=== PATIENT | male | born 1975 | race Caucasian/White ===

== ENCOUNTER 2021-05-14 11:29 | Outpatient (REF) | payer OTHER, SELFPAY ==
[2021-05-14 12:51] LABS: Binax Now Covid-19 Ag Positive (Negative)
[2021-05-14 12:52] LABS: Binax Internal Control QC Valid; Binax Lot number: 9864
== END 2021-05-14 11:30 | disposition home or self-care (01) ==
LOC: HO.LAB 11:29
PROVIDERS: Visit Provider Internal Medicine
DX: Z20.822 Contact with and (suspected) exposure to COVID-19 (principal)
CPT/HCPCS: 36415; C9803

== ENCOUNTER 2023-04-25 14:43 | Outpatient (AMB) | payer OTHER, SELFPAY ==
--- NOTE | 2023-04-25 14:56 | MHC.PC.OV ---
Vital Signs 04/25/23 15:01 Height 5 ft 3 in Weight 156 lb 6 oz BMI 27.7 BP 160/102 H Blood Pressure Location Lt brachial Position Sitting Pulse 100 Pulse Source Palpation Intake Visit Reasons: Re-establish care Intake Note: Pt is here to re-establish care. Pt has not seen a PCP in over 5-10 years. 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 Language: Turkish Accompanied by: Spouse Allergies nuts Allergy (Severe, Uncoded 04/25/23 15:19) Anaphylaxis Medication List - Last Reconciled 04/25/23 by Mich Schreiber PA-C epinephrine 0.15 mg IM Q30M PRN Tobacco use date assessed: 04/25/23 Dental Screening Dental Screen Date: 04/25/23 Did you have a dental visit in the last 12 months?: No Did you have a dental problem in the last 6 months where you did not have access to dental care?: No Was dental information given to patient?: Patient has dentist HPI Re-establish care HPI Details Patient is a 39-year-old male here today for restart which care visit. Has not had a PCP in many years. Patient had a past medical history significant for hypertension. He is pretty hypertensive today in office, he is otherwise asymptomatic. He does report having a family history of high blood pressure. He does admit to drinking 2 cups of coffee and monster energy drink on a daily basis. 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 Colon cancer screening: Has not had any colonoscopy Vaccine: He does report getting COVID vaccine, he is considering tetanus vaccine, declines flu vaccine PFSH Family History (Updated 04/25/23 @ 15:23 by Mich Schreiber PA-C) Mother CVA (cerebral vascular accident) Alzheimer disease Father Tracheal cancer Social History (Updated 04/25/23 @ 15:24 by Mich Schreiber PA-C) Housing: Apartment Alcohol intake: current Alcohol intake frequency: a few times a week Alcohol type: beer Patient Tobacco Use Status: Never used Tobacco e-Cigarette/Vaping Use: Never Used service: No Current occupational status: employed 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 1. Little interest or pleasure in doing things: not at all 2. Feeling down, depressed, or hopeless: not at all 3. Trouble falling or staying asleep, or sleeping too much: not at all 4. Feeling tired or having little energy: not at all 5. Poor appetite or overeating: not at all 6. Feeling bad about yourself - or that you are a failure or have let yourself or your family down: not at all 7. Trouble concentrating on things, such as reading the newspaper or watching television: not at all 8. Moving or speaking so slowly that other people could have noticed. Or the opposite - being so fidgety or restless that you have been moving around a lot more than usual: not at all 9. Thoughts that you would be better off or of hurting yourself in some way: not at all Total score: 0 Depression Screening Interpretation: Negative Depression Screening Done: Yes 98668 - PHQ-9 Billing: Yes Source: Developed by Drs. Joshua Rios, Bria Law, Ventura Peralta and colleagues, with an educational cami from [employer]. Thrive Questionnaire Date Thrive assessed: 04/25/23 I am a: Patient What is your living situation today?: I have a steady place to live Within the past 12 months, did the food you bought not last and you didn't have the money to get more?: Never true Within the past 12 months, did you worry whether your food would run out before you got money to buy more?: Never true Do you have trouble paying for medicines?: No Do you have trouble getting transportation to medical appointments?: No Do you have trouble paying your heating and electricity bill?: No Do you have trouble taking care of your child, family member or friend?: No Do you have trouble with day-to-day activities such as bathing, preparing meals, shopping, managing finances, etc.?: No Are you currently unemployed and looking for a job?: No Are you interested in more education?: No Please select the resources that you would like help with: None Currently or been in a relationship where the following occur: no concerns reported AUDIT C Alcohol Use Questionnaire (AUDIT-C) 1. How often do you have a drink containing alcohol?: Monthly or less 2. How many drinks containing alcohol do you have on a typical day when you are drinking?: 1 or 2 3. How often do you have six or more drinks on one occasion?: Never Total Score: 1 JOSE G-7 AMB Questionnaire JOSE G-7 Date JOSE G - 7 assessed: 04/25/23 Feeling nervous, anxious, or on edge: 0 = Not at all Not being able to stop or control worryin = Not at all Worrying too much about different things: 0 = Not at all Trouble relaxin = Not at all Being so restless that it is hard to sit still: 0 = Not at all Becoming easily annoyed or irritable: 0 = Not at all Feeling afraid as if something awful might happen: 0 = Not at all Total JOSE G-7 score (0-4 normal; 5-9 mild; 10-14 moderate; 15-21 severe): 0 Source: Developed by Drs. Joshua Rios, Bria Law, Ventura Peralta and colleagues, with an educational cami from [employer]. JOSE G-7 Assessment Billing JOSE G-7 Assessment Tool: JOSE G-7 Assessment [id number] Review of Systems Const Denies headache(s) Eyes Denies loss of vision ENT Denies vertigo, Denies dizziness, Denies headache(s) and Denies sore throat Card Denies chest pain, Denies leg edema and Denies lightheadedness Resp Denies cough, Denies hemoptysis and Denies wheezing GI Denies abdominal pain, Denies melena, Denies constipation, Denies diarrhea and Denies vomiting Denies dysuria, Denies urinary frequency and Denies urinary urgency Musc Denies arthralgias, Denies joint swelling, Denies numbness and Denies tingling Neuro Denies Abnormal speech present, Denies behavioral changes, Denies vertigo, Denies dizziness, Denies headache(s), Denies loss of vision, Denies memory loss, Denies numbness and Denies tingling Psych Denies anxiety, Denies behavioral changes, Denies depression, Denies memory loss and Denies panic attacks Blair/Lymph Denies easy bleeding and Denies easy bruising Aller/Immun Denies wheezing Physical exam (Primary Care) Vital Signs: Last Vital Signs Pulse 100 04/25/23 15:01 BP 160/102 H 04/25/23 15:01 BMI result Body Mass Index 27.7 Tobacco/Smoking Status: Tobacco use Status Tobacco use date assessed 04/25/23 04/25/23 15:13 Patient Tobacco Use Status Never used Tobacco 04/25/23 15:24 e-Cigarette/Vaping Use Never Used 04/25/23 15:24 PHQ-9: PHQ-9 Score PHQ-9: Total score 0 04/25/23 15:21 Depression Screening Interpretation: Negative Thrive Assessment: Date of Thrive Assessment Date Thrive assessed 04/25/23 04/25/23 15:13 Currently or been in a relationship where the following occur: no concerns reported Const General: healthy appearing, no acute distress, alert and awake Nutritional Appearance: well nourished Orientation/consciousness: oriented to person, oriented to place and oriented to time HENMT Ears: TM's normal bilaterally General nose exam: Normal nasal mucous membranes and turbinates present Eyes Conjunctivae: conjunctivae normal Sclerae: sclerae normal Pupils: Equal, round and reactive pupils present Neck Neck: Yes no lymphadenopathy and Yes no JVD Thyroid: Thyroid normal Carotids: no bruits Resp Effort & Inspection: normal respiratory effort and not tachypneic Auscultation: no crackles, no rales, no rhonchi and no wheezes Cardio Rate: regular rate Rhythm: regular rhythm Heart sounds: no murmurs and normal S1 and S2 GI Palpation (GI): Soft to palpation, nontender, no hepatomegaly and no splenomegaly Auscultation: normal bowel sounds Skin General skin exam: no rashes or lesions noted and dry skin Neuro General: oriented to person, oriented to place and oriented to time Cranial nerves: Yes Equal, round and reactive pupils present Speech: No Abnormal speech present Gait exam (Neuro): Normal gait present Motor exam (neuro): no tremor noted Extrem Right upper extremity: full ROM Left upper extremity: full ROM Right lower extremity: full ROM; no edema Left lower extremity: full ROM; no edema Psych Mental Status: mental status grossly normal Speech and movement: Normal speech and movement present Affect: normal affect Attitude: cooperative Thought process: Normal thought process present Assessment and Plan Assessment & Plan (1) HTN (hypertension): Code(s): I10 - Essential (primary) hypertension Qualifiers: Hypertension type: primary hypertension Qualified Code(s): I10 - Essential (primary) hypertension Plan: Patient's blood pressure elevated today in office. He does report family history of blood pressure per will start lisinopril mg. He does report drinking 2 cups of coffee and a 2nd injury drink a daily basis. Advised to reduce his caffeine intake. Goal blood pressures to be below 140/90 (2) Colon cancer screening: Code(s): Z12.11 - Encounter for screening for malignant neoplasm of colon Plan: Willing to do colonoscopy (3) Bilateral knee pain: Code(s): M25.561 - Pain in right knee; M25.562 - Pain in left knee Qualifiers: Chronicity: chronic Qualified Code(s): M25.561 - Pain in right knee; M25.562 - Pain in left knee; G89.29 - Other chronic pain Plan: Reports bilateral knee pain during cold days. Likely has osteoarthritis. Advised on p.r.n. use of Tylenol and anti-inflammatory. (4) Nut allergy: Code(s): Z91.018 - Allergy to other foods Plan: Anaphylactic reaction to nuts. Would like an EpiPen in case at anaphylactic reaction. Orders: Orders Microalbumin, Random (w Creat) 04/25/23 I10 - Essential (primary) hypertension Lipid Panel 04/25/23 I10 - Essential (primary) hypertension Complete Blood Count no Diff 04/25/23 I10 - Essential (primary) hypertension Prostate Specific Antigen Scr 04/25/23 I10 - Essential (primary) hypertension, Z12.5 - Encounter for screening for malignant neoplasm of prostate Comprehensive [place]. Panel Fast 04/25/23 I10 - Essential (primary) hypertension Referrals Gastroenterology Referral Z12.11 - Encounter for screening for malignant neoplasm of colon Medications: New miscellaneous medical supply (Blood Pressure Cuff) As directed 1 ea 0RF I10 - Essential (primary) hypertension epinephrine do not exceed 12 doses per 24 hrs 0.15 mg (0.3 mL) IM Q30M 30 days PRN 2 ea 0RF anaphylaxis Z91.018 - Allergy to other foods lisinopril 5 mg PO DAILY 30 days 30 tabs 1RF I10 - Essential (primary) hypertension Coding Level of Care Code New Pt Level 4 (73128) Diagnoses Primary hypertension I10 Hypertension type: primary hypertension Colon cancer screening Z12.11 Chronic pain of both knees M25.561; M25.562; G89.29 Chronicity: chronic Nut allergy Z91.018 Additional Codes JOSE G-7 Assessment Billing - JOSE G-7 Assessment Tool: JOSE G-7 Assessment [id number] ([id number])
[2023-04-25 15:01] VITALS: BP 160/102; PULSE 100; BMI 27.7
== END 2023-04-25 15:39 | disposition home or self-care (01) ==
PROVIDERS: PCP Internal Medicine Interventional Cardiology; Visit Provider Physician Assistant
DX: I10 Essential (primary) hypertension (principal); Z12.11 Encounter for screening for malignant neoplasm of colon; M25.561 Pain in right knee; M25.562 Pain in left knee; G89.29 Other chronic pain; Z91.018 Allergy to other foods
CPT/HCPCS: 99204

== ENCOUNTER 2023-04-27 10:07 | Outpatient (REF) | payer OTHER, SELFPAY ==
[2023-04-27 10:57] LABS: Hematocrit 41.9 % (42.0-52.0); Hemoglobin 14.6 g/dl (14.0-18.0); Mean Corpuscular HGB Conc 34.8 g/dl (31.0-36.0); Mean Corpuscular Hemoglobin 30.8 pg (27.0-33.0); Mean Corpuscular Volume 88.4 fL (80.0-98.0); Mean Platelet Volume 10.9 fL (9.4-12.4); Platelet Count 368 X10*3/uL (160-400); Red Blood Count 4.74 X10*6/uL (4.60-5.80); Red Cell Distribution Width 11.5 % (11.0-16.0); White Blood Count 5.7 X10*3/uL (4.8-10.8)
[2023-04-27 11:10] LABS: Creatinine Urine 101.36 mg/dL
[2023-04-27 11:12] LABS: Alanine Aminotransferase 22 U/L (0-40); Albumin Level 4.2 g/dL (3.5-5.0); Alkaline Phosphatase 63 U/L (39-117); Anion Gap 9 (12-20); Aspartate Amino Transferase 19 U/L (5-37); Bilirubin Total 0.5 mg/dL (0.0-1.0); Blood Urea Nitrogen 12 mg/dL (9-16); Calcium 9.6 mg/dL (8.4-10.2); Carbon Dioxide 31 mmol/L (22-29); Chloride 102 mmol/L (96-108); Cholesterol 246 mg/dL (<200); Estimated Glomerular Filt Rate > 60; Glucose Fasting 276 mg/dL (60-99); HDL Cholesterol 49 mg/dL (>40); LDL Cholesterol Calculated 173 mg/dL (<100); Potassium 3.8 mmol/L (3.3-5.1); Sodium 138 mmol/L (135-145); Total Protein 7.5 g/dL (6.5-8.0); Triglycerides 120 mg/dL (<150)
[2023-04-27 11:32] LABS: Prostate Specific Antigen Scr 0.31 ng/mL (<0.05-4.0)
== END 2023-04-27 10:08 | disposition home or self-care (01) ==
LOC: HO.LAB 10:07
PROVIDERS: PCP Physician Assistant; Visit Provider Physician Assistant
DX: I10 Essential (primary) hypertension (principal); Z12.5 Encounter for screening for malignant neoplasm of prostate
CPT/HCPCS: 36415; 80053; 80061; 82043; 82570; 84153; 85027

== ENCOUNTER 2023-04-30 10:27 | Outpatient (REF) | payer OTHER, SELFPAY ==
[2023-04-30 11:54] LABS: Estimated Average Glucose 255 mg/dL; Hemoglobin A1c % 10.5 % (<6.0)
== END 2023-04-30 10:28 | disposition home or self-care (01) ==
LOC: HO.LAB 10:27
PROVIDERS: PCP Physician Assistant; Visit Provider Physician Assistant
DX: R73.01 Impaired fasting glucose (principal)
CPT/HCPCS: 36415; 83036

== ENCOUNTER 2023-05-25 10:31 | Outpatient (REF) | payer OTHER, SELFPAY ==
[2023-05-25 11:59] LABS: Influenza A PCR POSITIVE (Negative); Influenza B PCR NEGATIVE (Negative); Resp Syncy Virus RNA Qual PCR NEGATIVE (Negative); SARS COV2 PCR INHOUSE NEGATIVE (Negative)
== END 2023-05-25 10:32 | disposition home or self-care (01) ==
LOC: HO.LAB 10:31
PROVIDERS: PCP Physician Assistant; Visit Provider Physician Assistant
DX: R09.89 Other specified symptoms and signs involving the circulatory and respiratory systems (principal); Z11.52 Encounter for screening for COVID-19
CPT/HCPCS: 0241U

== ENCOUNTER 2023-06-25 08:22 | Outpatient (AMB) | payer OTHER, SELFPAY ==
--- NOTE | 2023-06-25 08:35 | MHC.OFFVIS ---
Intake Vital Signs 06/25/23 08:36 06/25/23 09:02 Height 5 ft 3 in Weight 160 lb 0.889 oz BMI 28.3 BP 194/106 H 151/97 H Blood Pressure Location Lt brachial Position Sitting Pulse 87 Intake Visit Reasons: Colonoscopy Screening Intake Note: Patient presents to in office visit today as a new patient for colonoscopy screening. CC: Patient reports occasional abdominal pain, and heartburn. Denies other GI symptoms. Allergies No Known Drug Allergies Allergy (Unknown, Verified 06/25/23 08:43) Back Pain nut - unspecified Allergy (Unknown, Verified 06/25/23 08:43) Anaphylaxis Medication List - Last Reconciled 06/25/23 by Blanca Weeks PA-C epinephrine 0.15 mg (0.3 mL) IM Q30M PRN 30 days lisinopril 5 mg PO DAILY 30 days metformin 500 mg PO BID 30 days miscellaneous medical supply (Blood Pressure Cuff) As directed HPI HPI Comments History of Present Illness Details A 47 y/o male referred for index screening- Appetite good- no reflux No Fam hx GI cancers Bowels normal No cardiac or respiratory- BP goes up when comes to appointments- lisinopril- prescribed- as well metformin- pt states not at pharmacy No N/V/ D/ abdominl [place], CP, FERRARI, dizziness or SOB PFSH Surgical History No pertinent past surgical history Family History Mother CVA (cerebral vascular accident) Alzheimer disease Father Tracheal cancer Prostate cancer Social History Housing: Apartment Alcohol intake: current Alcohol intake frequency: a few times a week Alcohol type: beer Patient Tobacco Use Status: Never used Tobacco e-Cigarette/Vaping Use: Never Used service: No Current occupational status: employed 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 Cognitive needs: No Hearing needs: No Vision needs: No Review of Systems Const All systems reviewed & are unremarkable except as noted in HPI and below Denies chills, Denies fever(s) and Denies headache(s) Eyes Denies blurry vision ENT Denies dizziness and Denies headache(s) Card Denies chest pain and Denies dyspnea Resp Denies dyspnea GI Denies abdominal pain, Denies hematochezia, Denies change in bowel habits, Denies nausea and Denies vomiting Neuro Denies dizziness and Denies headache(s) Physical Exam Vital Signs: Last Vital Signs Pulse 87 06/25/23 08:36 BP 151/97 H 06/25/23 09:02 BMI result Body Mass Index 28.3 Const General: cooperative, healthy appearing, comfortable and no acute distress Orientation/consciousness: patient oriented x3 Limitations: language barrier Eyes Sclerae: sclerae normal Resp Effort & Inspection: normal respiratory effort and able to speak in complete sentences Auscultation: clear to auscultation bilaterally, no rales, no rhonchi and no wheezes Cardio Rate: regular rate Rhythm: regular rhythm Heart sounds: S1 normal heart sound present and S2 normal heart sound present GI Palpation (GI): Soft to palpation and nontender Auscultation: normal bowel sounds Skin General skin exam: no rashes or lesions noted Neuro General: patient oriented x3 Extrem General: Yes full ROM Psych Appearance: grossly normal and well kempt Mental Status: mental status grossly normal Speech and movement: Normal speech and movement present and Clear speech present Affect: normal affect Attitude: cooperative Thought process: Normal thought process present Thought content: Normal thought content present Insight: Good insight present (Psych) Judgement: Good judgement present (Psych) Assessment & Plan Assessment & Plan (1) Colon cancer screening: Comment: pleasant- HTN- no sx- disc-proc/ rare risks need for escort Code(s): Z12.11 - Encounter for screening for malignant neoplasm of colon Plan: index screening (2) HTN (hypertension): Comment: mily BP- improved Code(s): I10 - Essential (primary) hypertension Qualifiers: Hypertension type: primary hypertension Qualified Code(s): I10 - Essential (primary) hypertension Plan: F/U pcp- lisinopril (3) DMII (diabetes mellitus, type 2): Comment: not taking metformin Code(s): E11.9 - Type 2 diabetes mellitus without complications Plan: f/u pcp- Plan Index screening- PEG-prep(allergy- dulcolax) Orders: Orders Colonoscopy - GI Use Only Today Z12.11 - Encounter for screening for malignant neoplasm of colon Medications: New peg 3350-electrolytes 240-22.72-6.72 -5.84 gram until fecal effluent is clear 240 mL PO Q10M 4,000 mL 0RF Patient Instructions: F/U PCP- medications BP/DM Index screening colonoscopy PEG prep Encouraged to call questions or concern Coding Level of Care Code New Pt Level 3 (21182) Diagnoses Colon cancer screening Z12.11 Primary hypertension I10 Hypertension type: primary hypertension DMII (diabetes mellitus, type 2) E11.9 Time Spent (min) 30 Comment interp- Chin
[2023-06-25 08:36] VITALS: BP 194/106; PULSE 87; BMI 28.3
[2023-06-25 09:02] VITALS: BP 151/97
== END 2023-06-25 09:16 | disposition home or self-care (01) ==
PROVIDERS: PCP Physician Assistant; Visit Provider Physician Assistant
DX: Z12.11 Encounter for screening for malignant neoplasm of colon (principal); I10 Essential (primary) hypertension; E11.9 Type 2 diabetes mellitus without complications; Z01.818 Encounter for other preprocedural examination
CPT/HCPCS: 99203

== ENCOUNTER → 2023-06-25 08:22 | Outpatient (BNVA) | payer SELFPAY | PROVIDERS: PCP Physician Assistant; Visit Provider Physician Assistant | DX: Z12.11 Encounter for screening for malignant neoplasm of colon (principal); I10 Essential (primary) hypertension; E11.9 Type 2 diabetes mellitus without complications | CPT/HCPCS: 99202 ==

== ENCOUNTER 2023-07-25 09:40 | Outpatient (AMB) | payer OTHER, SELFPAY ==
[2023-07-25 10:12] VITALS: BP 146/90; PULSE 92; O2SAT 98; BMI 27.2
--- NOTE | 2023-07-25 10:12 | MHC.PC.OV ---
Vital Signs 07/25/23 10:12 Height 5 ft 3 in Weight 153 lb 8 oz BMI 27.2 BP 146/90 H Blood Pressure Location Lt brachial Position Sitting Pulse 92 Pulse Source Pulse Oximeter Pulse Oximetry (%) 98 Oxygen Delivery Method Room Air Intake Visit Reasons: Annual Exam Intake Note: Patient is here today for a physical. 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 Patient has a past medical history significant for type 2 diabetes. -Concern--> reports having bilateral Achilles pain after standing or walking for long periods of time. PLAN: Will trial gel heel inserts and meloxicam as needed for heel and Achilles pain. . Type 2 diabetes: Today's A1c at 10.5. Has not been started on diabetic medication as he reports not at pharmacy. Will start metformin 500 b.i.d. per We discussed diabetic diet and patient will try to implement a diabetic diet. .. Hypertension: Noted elevated blood pressure today in office and has been elevated at previous visit. Will start lisinopril for renal protection and blood pressure control. Colon cancer screening: Has upcoming appt for colonoscopy. Vaccine: He does report getting COVID vaccine, he is considering tetanus vaccine, declines flu vaccine Laboratory Tests 04/27/23 04/30/23 05/25/23 10:18 10:39 10:43 Hemoglobin A1c % 10.5 H Cholesterol 246 H LDL Cholesterol, C alc 173 H Influenza Type A ( PCR) POSITIVE A [facility] Surgical History No pertinent past surgical history Family History (Updated 07/25/23 @ 10:43 by Mich Schreiber PA-C) Mother CVA (cerebral vascular accident) Alzheimer disease Father Tracheal cancer Prostate cancer Social History (Updated 07/25/23 @ 10:44 by Mich Schreiber PA-C) Housing: Apartment Alcohol intake: current Alcohol intake frequency: a few times a week Alcohol type: beer Patient Tobacco Use Status: Never used Tobacco e-Cigarette/Vaping Use: Never Used service: No Current occupational status: employed 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 1. Little interest or pleasure in doing things: not at all 2. Feeling down, depressed, or hopeless: not at all 3. Trouble falling or staying asleep, or sleeping too much: not at all 4. Feeling tired or having little energy: not at all 5. Poor appetite or overeating: not at all 6. Feeling bad about yourself - or that you are a failure or have let yourself or your family down: not at all 7. Trouble concentrating on things, such as reading the newspaper or watching television: not at all 8. Moving or speaking so slowly that other people could have noticed. Or the opposite - being so fidgety or restless that you have been moving around a lot more than usual: not at all 9. Thoughts that you would be better off or of hurting yourself in some way: not at all Total score: 0 Depression Screening Interpretation: Negative Depression Screening Done: Yes 71710 - PHQ-9 Billing: Yes Source: Developed by Drs. Joshua Rios, Bria Law, Ventura Peralta and colleagues, with an educational cami from [employer]. Thrive Questionnaire Date Thrive assessed: 07/25/23 I am a: Patient What is your living situation today?: I have a steady place to live Within the past 12 months, did the food you bought not last and you didn't have the money to get more?: Never true Within the past 12 months, did you worry whether your food would run out before you got money to buy more?: Never true Do you have trouble paying for medicines?: No Do you have trouble getting transportation to medical appointments?: No Do you have trouble paying your heating and electricity bill?: No Do you have trouble taking care of your child, family member or friend?: No Do you have trouble with day-to-day activities such as bathing, preparing meals, shopping, managing finances, etc.?: No Are you currently unemployed and looking for a job?: No Are you interested in more education?: No Please select the resources that you would like help with: None Currently or been in a relationship where the following occur: no concerns reported THRIVE Score: 0 AUDIT C Alcohol Use Questionnaire (AUDIT-C) 1. How often do you have a drink containing alcohol?: Monthly or less 2. How many drinks containing alcohol do you have on a typical day when you are drinking?: 1 or 2 3. How often do you have six or more drinks on one occasion?: Never Total Score: 1 JOSE G-7 AMB Questionnaire JOSE G-7 Date JOSE G - 7 assessed: 07/25/23 Feeling nervous, anxious, or on edge: 0 = Not at all Not being able to stop or control worryin = Not at all Worrying too much about different things: 0 = Not at all Trouble relaxin = Not at all Being so restless that it is hard to sit still: 0 = Not at all Becoming easily annoyed or irritable: 0 = Not at all Feeling afraid as if something awful might happen: 0 = Not at all Total JOSE G-7 score (0-4 normal; 5-9 mild; 10-14 moderate; 15-21 severe): 0 Source: Developed by Drs. Joshua Rios, Bria Law, Ventura Peralta and colleagues, with an educational cami from [employer]. JOSE G-7 Assessment Billing JOSE G-7 Assessment Tool: JOSE G-7 Assessment 93270 Review of Systems Const Denies body aches, Denies chills, Denies excessive sweating, Denies fatigue, Denies fever(s) and Denies headache(s) Eyes Denies blurry vision ENT Denies dysphagia, Denies vertigo, Denies dizziness, Denies headache(s), Denies hearing loss and Denies tinnitus Card Denies chest pain, Denies chest pain with activity, Denies syncope, Denies irregular heart rhythm and Denies dyspnea Resp Denies chest congestion, Denies cough, Denies hemoptysis, Denies dyspnea and Denies wheezing GI Denies abdominal pain, Denies melena, Denies hematochezia, Denies coffee ground emesis, Denies dysphagia, Denies diarrhea, Denies nausea and Denies vomiting Denies difficulty urinating, Denies dysuria, Denies urinary frequency, Denies urinary hesitancy and Denies urinary urgency Musc Denies arthralgias, Denies limited range of motion, Denies muscle cramps and Denies muscle weakness Skin/Breast Denies rash and Denies skin ulcer Neuro Denies Abnormal speech present, Denies confusion, Denies vertigo, Denies dizziness, Denies syncope, Denies headache(s), Denies memory loss and Denies seizure-like activity Psych Denies anxiety, Denies confusion, Denies depression, Denies memory loss, Denies panic attacks and Denies paranoia Endo Denies excessive sweating, Denies fatigue, Denies flushing, Denies polydipsia and Denies polyuria Aller/Immun Denies wheezing Physical exam (Primary Care) Vital Signs: Last Vital Signs Pulse 92 07/25/23 10:12 BP 146/90 H 07/25/23 10:12 Pulse Ox 98 07/25/23 10:12 Oxygen Delivery Method Room Air 07/25/23 10:12 BMI result Body Mass Index 27.2 Tobacco/Smoking Status: Tobacco use Status Tobacco use date assessed 07/25/23 07/25/23 10:28 Patient Tobacco Use Status Never used Tobacco 07/25/23 10:44 e-Cigarette/Vaping Use Never Used 07/25/23 10:44 PHQ-9: PHQ-9 Score PHQ-9: Total score 0 07/25/23 10:42 Depression Screening Interpretation: Negative Thrive Assessment: Date of Thrive Assessment Date Thrive assessed 07/25/23 07/25/23 10:28 Currently or been in a relationship where the following occur: no concerns reported Const General: cooperative, comfortable, no acute distress, alert and awake; No confusion Orientation/consciousness: oriented to person, oriented to place, patient oriented x3 and No confusion HENMT Head: Yes normocephalic Ears: external ears normal and TM's normal bilaterally Face and sinus: No sinus tenderness Mouth: Normal oral and palatal mucosa present and tongue normal Teeth and gingiva: dentition normal and gingiva normal Throat: Yes posterior oropharynx normal, Yes tonsils normal and Yes uvula midline Eyes Conjunctivae: conjunctivae normal Sclerae: sclerae normal Pupils: Equal, round and reactive pupils present EOM: EOMs intact bilaterally Direct Ophthalmoscopy: No no photophobia Neck Neck: Yes no lymphadenopathy, No tender and Yes no JVD Thyroid: Thyroid normal Carotids: no bruits Chest Chest palpation & inspection: no tenderness Resp Effort & Inspection: normal respiratory effort, no audible wheezes, not labored and no stridor Auscultation: no crackles, no rales, no rhonchi and no wheezes Cardio Jugular venous distension: no JVD Rate: regular rate, not bradycardic and not tachycardic Rhythm: regular rhythm Bruits: no carotid bruits Peripheral pulses: Peripheral pulses 2+ throughout GI Inspection: Yes normal to inspection, No abdominal wall ecchymosis and No visible herniation Palpation (GI): Soft to palpation, nontender, no guarding, not rigid and No hepatosplenomegaly present Auscultation: normoactive bowel sounds General: Yes no CVA tenderness Back/Spine/Pelvis Back: no CVA tenderness and No back tenderness Cervical Spine: cervical ROM normal Thoracic/Lumbar Spine: thoracic and lumbar spine normal to inspection, straight leg raise negative bilaterally, No thoraco-lumbar ROM limited and No lumbar spinal tenderness Skin Lesions: no lesions Rashes: no rashes Wounds: no wounds Neuro General: oriented to person, oriented to place, patient oriented x3, CN's II-XI intact bilaterally and No confusion Cranial nerves: Yes Equal, round and reactive pupils present and Yes Normal accommodation reflex present Cognition (Neuro): normal cognition Speech: No Abnormal speech present Gait exam (Neuro): Normal gait present Motor exam (neuro): 5/5 motor strength present throughout Extrem Right upper extremity: full ROM; no cyanosis Left upper extremity: full ROM; no cyanosis Right lower extremity: no edema Left lower extremity: no edema Psych Appearance: grossly normal Mental Status: mental status grossly normal Affect: normal affect Attitude: cooperative Thought process: Normal thought process present Results AMB Hemoglobin A1c AMB Hemoglobin A1c 10.5 % Last Edit by MIRNA Walsh on 07/25/23 10:40 Results Reviewed Results Reviewed: Laboratory Last Values Hgb A1c (Clinic) 10.5 % H* 07/25/23 10:29 Assessment and Plan Assessment & Plan (1) Annual physical exam: Code(s): Z00.00 - Encounter for general adult medical examination without abnormal findings (2) HTN (hypertension): Comment: mily BP- improved Code(s): I10 - Essential (primary) hypertension Qualifiers: Hypertension type: primary hypertension Qualified Code(s): I10 - Essential (primary) hypertension Plan: Patient's blood pressure elevated today in office. He does report family history of blood pressure per will start lisinopril mg. He does report drinking 2 cups of coffee. Advised to reduce his caffeine intake. 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 He denies any polydipsia polyuria. Not interested in any insulin at this time. Will start metformin 500 b.i.d. and implementing strict diabetic diet. Will follow-up in 3 months and if A1c remains above 9 will consider additional diabetic medication. Goal A1c is to be below 7.0 (4) Colon cancer screening: Comment: pleasant- HTN- no sx- disc-proc/ rare risks need for escort Code(s): Z12.11 - Encounter for screening for malignant neoplasm of colon Plan: Has upcoming appointment for colonoscopy in October of 2023 (5) Nut allergy: Code(s): Z91.018 - Allergy to other foods Plan: Anaphylactic reaction to nuts. Would like an EpiPen in case at anaphylactic reaction. (6) Achilles tendinitis: Code(s): M76.60 - Achilles tendinitis, unspecified leg Qualifiers: Laterality: bilateral Qualified Code(s): M76.61 - Achilles tendinitis, right leg; M76.62 - Achilles tendinitis, left leg Plan: Patient's signs and symptoms most consistent with bilateral Achilles tendinitis. Advised on shoe insert to help reduce his pain. Will supply patient with NSAID to use as needed. Orders: Orders Comprehensive [place]. Panel Fast Today E11.65 - Type 2 diabetes mellitus with hyperglycemia Microalbumin, Random (w Creat) Today I10 - Essential (primary) hypertension Lipid Panel Today E11.65 - Type 2 diabetes mellitus with hyperglycemia AMB Hemoglobin A1c Today E11.9 - Type 2 diabetes mellitus without complications Prostate Specific Antigen Scr Today I10 - Essential (primary) hypertension, Z12.5 - Encounter for screening for malignant neoplasm of prostate Medications: New blood sugar diagnostic (FreeStyle Lite Strips) As directed 100 ea 3RF E11.65 - Type 2 diabetes mellitus with hyperglycemia, E11.9 - Type 2 diabetes mellitus without complications lancets (FreeStyle Lancets) test sugar daily 100 ea 3RF E11.65 - Type 2 diabetes mellitus with hyperglycemia, E11.9 - Type 2 diabetes mellitus without complications lisinopril 5 mg PO DAILY 90 tabs 1RF I10 - Essential (primary) hypertension metformin 500 mg PO BID 90 days 180 tabs 1RF E11.65 - Type 2 diabetes mellitus with hyperglycemia blood-glucose meter (FreeStyle Lite Meter kit) As directed 1 ea 0RF E11.65 - Type 2 diabetes mellitus with hyperglycemia meloxicam 15 mg PO DAILY 30 days PRN 30 tabs 1RF pain, moderate M76.60 - Achilles tendinitis, unspecified leg Changed From epinephrine do not exceed 12 doses per 24 hrs 0.15 mg (0.3 mL) IM Q30M 30 days PRN 2 ea 0RF anaphylaxis Z91.018 - Allergy to other foods To epinephrine 0.15 mg (0.3 mL) IM ONCE PRN 2 ea 0RF anaphylaxis 30 days Z91.018 - Allergy to other foods Coding Level of Care Code Est Pt Prev Care 40-64y([id number]) Diagnoses Annual physical exam Z00.00 Primary hypertension I10 Hypertension type: primary hypertension Type 2 diabetes mellitus with hyperglycemia, without long-term current use of insulin E11.65 Diabetes mellitus complication status: with hyperglycemia Diabetes mellitus custodial insulin use: without custodial use Colon cancer screening Z12.11 Nut allergy Z91.018 Achilles tendinitis of both lower extremities M76.61; M76.62 Laterality: bilateral Additional Codes JOSE G-7 Assessment Billing - JOSE G-7 Assessment Tool: JOSE G-7 Assessment [id number] ([id number])
== END 2023-07-25 11:07 | disposition home or self-care (01) ==
PROVIDERS: PCP Internal Medicine Interventional Cardiology; Visit Provider Physician Assistant
DX: Z00.00 Encounter for general adult medical examination without abnormal findings (principal); I10 Essential (primary) hypertension; E11.65 Type 2 diabetes mellitus with hyperglycemia; Z12.11 Encounter for screening for malignant neoplasm of colon; Z91.018 Allergy to other foods; M76.61 Achilles tendinitis, right leg; M76.62 Achilles tendinitis, left leg; E11.9 Type 2 diabetes mellitus without complications
CPT/HCPCS: 83036; 99396